=== PATIENT | male | born 1960 | race Caucasian/White ===

== ENCOUNTER 2017-02-06 16:15 | Inpatient (IN) | payer BC ==
--- NOTE | ~2017-02-06 | OP ---
Record Of Operation [facility] [address] [place]. [address] NAME: CHRIS FOLEY : 56 STATUS : ADM IN PAT#: [id number] AGE: 57 ADM/REG DATE : 02/06/17 MR#: [id number] REPORT SERV DATE: 02/07/17 DICTATED BY: JIMI GRIMES DATE: 02/06/17 REPORT STATUS : Draft TRANSCRIBED BY: MODL DATE: 02/06/17 DATE OF PROCEDURE: 02/06/2017 PREOPERATIVE DIAGNOSIS: Right dorsal hand abscess. POSTOPERATIVE DIAGNOSIS: Right dorsal abscess with nidus coming from index finger CMC dorsal region with erosion of bone at both sites, especially the index finger metacarpal base. PROCEDURES: 1. Cultures, right dorsal hand abscess. 2. Irrigation and debridement of soft tissue and bone of abscess coming from index finger CMC joint. 3. Vac-Pac placement. SURGEON: Jimi Grimes M.D. ANESTHESIA: General. SPECIMEN: Cultures taken as well as curretting of index finger metacarpal base and trapezium bone to check for osteomyelitis. ESTIMATED BLOOD LOSS: 20 mL. IV FLUIDS: 500 mL. COMPLICATIONS: None. DISPOSITION: The patient tolerated the procedure well and was brought to the recovery room in stable condition. PROCEDURE NOTE: The patient was brought to the operating room and placed in supine position after general anesthesia was administered. A pneumatic tourniquet was placed around the right proximal arm, the right upper extremity was exsanguinated with an Esmarch. The dressing was taken down and the puncture wound was inspected from an earlier aspiration. The right upper extremity distal to the tourniquet was prepped and draped in the usual sterile manner. After a surgical timeout was performed and all were in agreement, a 15- blade scalpel was used to make a 5- to 7-cm longitudinal incision on the radial aspect of the index finger metacarpal bone down across starting some 3 cm distal to the CMC joint area and brought across the dorsal wrist crease for 1 to 2 cm. Blunt dissection was carried out, scar tissue was identified, and this was removed with rongeur. Pus was collected from the wound, and at this time, the wound was then irrigated. There was a small hole noted at the CMC joint of the index finger. A rongeur was used to remove a wafer of bone which unroofed a cavity at the former CMC joint. There was bone missing from the base of the index finger CMC joint as well as bone missing from the trapezium bone. This was the site/nidus of infection and cultures were taken from here as well. A curette was then used to curette the bone from the index finger metacarpal bone and the trapezium bone/trapezoid bone, and this Record Of Operation [address] [place]. [address] NAME: CHRIS FOLEY : 56 STATUS : ADM IN [facility]#: [id number] AGE: 57 ADM/REG DATE : 02/06/17 MR#: [id number] REPORT SERV DATE: 02/07/17 DICTATED BY: JIMI GRIMES DATE: 02/06/17 REPORT STATUS : Draft TRANSCRIBED BY: JAY DATE: 02/06/17 was sent to Pathology and Microbiology. The wound was then irrigated with copious amounts of normal saline via pulse lavage. The tourniquet was released to make sure that there was no extensive bleeding, and after no extensive bleeding was appreciated, the Esmarch was used again to exsanguinate the extremity and tourniquet was inflated. The wound was irrigated again and the Vac-Pac sponge was placed into the cavity caused by the infection. The wound was then partially closed overlying the sponge using Prolene suture and an occlusive dressing was applied. A hole was cut in the occlusive dressing to allow a suction connector to be placed onto the sponge and connected to the BiPAP machine. A sterile dressing was applied and a volar splint was applied. The patient was then taken out of general anesthesia and was ready to be brought to recovery room in stable condition. CHERRI/JAY Jimi Grimes M.D. / [id number] CC: Jimi Grimes M.D.
--- NOTE | ~2017-02-06 | DS ---
Discharge Summary [facility] [address] [place]. [address] NAME: CHRIS FOLEY : 56 STATUS : DIS IN PAT#: [id number] AGE: 57 ADM/REG DATE : 02/06/17 MR#: [id number] REPORT SERV DATE: 02/22/17 DICTATED BY: JIMI GRIMES DATE: 02/21/17 REPORT STATUS : Draft TRANSCRIBED BY: JAY DATE: 02/21/17 Data Collection from hospitalization DISCHARGE DIAGNOSES: 1. Right dorsal abscess with nidus coming from index finger, carpometacarpal dorsal region with erosion of bones at both ends of the joint to include the index finger metacarpal base distally and the trapezoid bone proximally. 2. Hypertension. 3. Coronary artery disease. 4. Obstructive sleep apnea. CONSULTATION: Dr. Varun Ashby. PROCEDURES PERFORMED: 1. Cultures right dorsal hand abscess, irrigation and debridement of soft tissue and bone of abscess coming from index finger CMC joint, VAC pack placement, 02/06/2017. 2. Right index finger CMC joint repeat cultures, irrigation and debridement of soft tissue and bone to include the index finger metacarpal base and the distal trapezoid bone; vancomycin and gentamicin antibiotic placement; delayed wound closure, right ring finger metacarpal base; cultures of bone cyst; irrigation and debridement; antibiotic bead placement, 02/10/2013. PATHOLOGY: Bone biopsies, index finger and carpometacarpal joints-diffuse marrow fibrosis and acute and chronic inflammation consistent with osteomyelitis (no bacterial colonies identified). Bone right index finger-benign viable bone and cartilage without significant pathologic change. No acute or chronic osteomyelitis or osteonecrosis. Bone right index finger metacarpal-benign bone reparative change with granulation tissue with focal neutrophilic infiltrates suggestive of acute osteomyelitis. DISCHARGE MEDICATIONS: Aspirin 81 mg at bedtime, Dilaudid 2 mg every four hours as needed, Prinivil 5 mg at bedtime, Toprol-XL at bedtime as instructed, Zocor 40 mg at bedtime. CONDITION AT DISCHARGE: Stable. DISPOSITION: The patient was discharged home to be followed by home health care on a regular diet with activities as instructed. He would follow up with az, 02/20/2017. He would follow up with Dr. Varun Ashby as instructed. HOSPITAL COURSE: This is a 57-year-old man, who had had a right dorsal hand "knot" for the past four days prior to admission. Right hand had a localized swelling about the dorsal radial carpal/CMC region with warmth and redness. He did have pain when trying to achieve full flexion and extension. There were no open areas, but the dorsal hand did have some old scars present about the carpal and metacarpal area. Treatment options were discussed and it was elected to proceed with surgical intervention. He was admitted to the hospital at this time for further evaluation and treatment. Upon admission, he was taken to the operating room, where he underwent the above-mentioned procedure. He tolerated this well and there were no complications. On postop day #1, he Discharge Summary [place] [id number] [facility] [place]. [address] NAME: CHRIS FOLEY : 56 STATUS : DIS IN PAT#: [id number] AGE: 57 ADM/REG DATE : 02/06/17 MR#: [id number] REPORT SERV DATE: 02/22/17 DICTATED BY: JIMI GRIMES DATE: 02/21/17 REPORT STATUS : Draft TRANSCRIBED BY: JAY DATE: 02/21/[address] Varun Ashby for evaluation and treatment of hand infection. He had suffered trauma to his right hand in an accident in 1999, which had included a tendon rupture in his dorsal hand requiring extensive reparative surgery. He had had intermittent swelling on several occasions after that and developed an infection in 2010 with cultures growing methicillin-resistant Staph aureus. Since then, he said that it tended to swell when he does repetitive motion and that had occurred in recent weeks, but grew worse despite the usual maneuvers that had been tried in the past, like oral antibiotics and steroids. He had undergone surgical debridement. One culture was growing what appeared to be some Staph aureus. He was on vancomycin and Unasyn. He had not been on antibiotics prior to coming in. White blood cell count at the time of presentation was 13.1, creatinine was 1.1. This appeared to likely be Staph and there may be osteomyelitis. We would follow up the cultures and adjust antibiotics as indicated. For now, he recommended continuing just vancomycin alone and stop the Unasyn. The VAC pack remained in place. On the , he had occasional pain. Cultures had revealed Staph aureus. Plans were being made to proceed with further surgical intervention. He had no new symptoms. He remained afebrile. Cultures of fluid and bone had all revealed MRSA. The Dilaudid dose was increased and this helped manage his pain. IV vancomycin continued as well as lisinopril, Toprol, and simvastatin. On 02/10/2017, he was taken back to the operating room, where he underwent the above- mentioned procedure. He tolerated this well and there were no complications. The following day, he had no new symptoms. He remained afebrile. His lungs were clear. Discharge planning was performed. Vancomycin was continued. We encouraged him to mobilize with Physical Therapy. A PICC line was inserted. On 02/12/2017, he continued to do well. Discharge instructions were given. Due to his improved and stable condition, he was discharged home to be followed by home health care with the above-stated instructions. Information collected by: Patricia Stanford I submit the above information as my discharge summary. TG/MODL Jimi Grimes M.D. / [id number] CC: Jimi Grimes M.D. Gianluca Cronin M.D.
--- NOTE | ~2017-02-06 | CN ---
Consultation Report [facility] [address] [place]. [address] NAME: CHRIS FOLEY : 56 STATUS : ADM IN [facility]#: [id number] AGE: 57 ADM/REG DATE : 02/06/17 MR#: [id number] REPORT SERV DATE: 02/07/17 DICTATED BY: JEN HARDY DATE: 02/07/17 REPORT STATUS : Draft TRANSCRIBED BY: JAY DATE: 02/07/17 INFECTIOUS DISEASE CONSULT DATE OF CONSULTATION: REASON FOR REFERRAL: Evaluation and treatment of hand infection. HISTORY OF PRESENT ILLNESS: The patient is a 57-year-old male. He has a history of coronary artery disease, which he says he has had stents done in the past. Otherwise, no chronic problems or chronic medications. He suffered trauma to his right hand in an accident in 1999, which included a tendon rupture in his dorsal hand, requiring extensive reparative surgery. He had intermittent swelling in it on several occasions after that and developed an infection in 2010 with cultures here growing methicillin-resistant Staph aureus. Since then, he says it has tended to swell when he does repetitive motion and that occurred in recent weeks, but grew worse despite the usual maneuvers that have been tried in the past like oral antibiotics and steroids. He has had no fevers, chills, or other systemic symptoms. He has had no infections elsewhere in his body that might have spread there, and there has been no recent trauma or unusual environmental exposures to the hand. He was seen by Dr. Mccann, admitted, and underwent a surgical debridement yesterday with debridement of an abscess coming from the index fingers, CMC joint, and mention of the possibility of osteomyelitis. Cultures thus far on two cultures are negative, one is growing what appears to be some Staph aureus. He is on vancomycin and Unasyn. He was on no antibiotics prior to coming in. PAST MEDICAL HISTORY: Otherwise unremarkable. MEDICATIONS: As mentioned above. ALLERGIES: HE HAS NO KNOWN ANTIMICROBIAL ALLERGIES. 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 Does a lot of photography and gardening as hobbies. He is . His is with him in the room. He does smoke 4-5 cigarettes a day. No history of alcohol or substance abuse. FAMILY HISTORY: Noncontributory. PHYSICAL EXAMINATION: GENERAL: A nontoxic adult male, in no acute distress. Alert and oriented x3. VITAL SIGNS: Temperature since arrival has been normal at 98.5 at present with a pulse of 72, respirations 22, blood pressure 112/66. Weight 81 kg. HEENT: Sclerae are clear. No oral lesions. NECK: Supple. LUNGS: Clear. HEART: Regular rate and rhythm without murmur. Consultation Report [place] [address] [place]. [address] NAME: CHRIS FOLEY : 56 STATUS : ADM IN PAT#: [id number] AGE: 57 ADM/REG DATE : 02/06/17 MR#: [id number] REPORT SERV DATE: 02/07/17 DICTATED BY: JEN HARDY DATE: 02/07/17 REPORT STATUS : Draft TRANSCRIBED BY: JAY DATE: 02/07/17 ABDOMEN: Soft, nontender. Positive bowel sounds. EXTREMITIES: The right hand was covered by a bulky dressing on the forearm down to the tips of the fingers with normal-appearing tissue above it. LABORATORY DATA: White count at presentation 13.1 with a hematocrit of 46.6, platelets 295. Unremarkable differential. BUN and creatinine are 18 and 1.1. IMPRESSION: Infection at the site of old trauma and had normal anatomy on the dorsal right hand, it appears to likely be staph, and there may be osteomyelitis as per Dr. Mccann's assessment. Material that was submitted to Pathology to evaluate for this is still pending. RECOMMENDATIONS: 1. We will follow up the cultures, adjust antibiotics as indicated. 2. For now, continue just vancomycin alone and stop the Unasyn. 3. Finally, I will follow the patient with you. I appreciate very much your consulting on this patient. DENISSE/JAY Jen Hardy M.D. / [id number] CC: Gianluca Hatch M.D.
--- NOTE | ~2017-02-06 | OP ---
Record Of Operation [place] [address] [facility] [place]. 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 POSTOPERATIVE DIAGNOSES: 1. 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 2. Right dorsal ring finger bone cyst-benign. PROCEDURES: 1. Right index finger. a. Repeat cultures. b. Irrigation and debridement of soft tissue and bone to include the index finger metacarpal base and the distal trapezoid bone. c. Vancomycin and gentamicin antibiotic placement. d. Delayed wound closure. 2. Right ring finger:. a. Cultures of bone cyst. b. Irrigation and debridement. c. Antibiotic bead placement. SURGEON: Jimi Grimes M.D. CERTIFIED MASTER SAFECRACKER: Sruthi. ANESTHESIA: General. ESTIMATED BLOOD LOSS: Less than 2 mL. COMPLICATIONS: None. DISPOSITION: The patient tolerated the procedure well and was brought to the recovery room in a stable condition. PROCEDURE NOTE: The patient was brought to the operating room and was placed in the supine position. After general anesthesia was administered, a pneumatic tourniquet was placed around the right proximal arm, and the right upper extremity distal to the tourniquet was prepped and draped in usual sterile manner. A surgical timeout was performed and all were in agreement. The VAC pack sponge was removed. The wound was inspected. Cultures were taken and samples from the index finger metacarpal and distal trapezoid bone were taken and also sent to microbiology as well as pathology. The wound was then irrigated with copious amounts of normal saline including the surrounding soft tissues. The wound was later packed Record Of Operation [place] [address] [facility] [place]. [address] NAME: CHRIS FOLEY : 56 STATUS : ADM IN PAT#: [id number] AGE: 57 ADM/REG DATE : 02/06/17 MR#: [id number] REPORT SERV DATE: 02/10/17 DICTATED BY: JIMI GRIMES DATE: 02/10/17 REPORT STATUS : Draft TRANSCRIBED BY: JAY DATE: 02/10/17 with antibiotic beads comprising of 1 g of vancomycin and 240 mg of gentamicin. Preoperative x-rays revealed a small cystic change in the ring finger metacarpal base and based on the patient's history, exploration of the cyst was done to rule out another nidus of infection. Under fluoroscopic guidance, a 15 blade scalpel was used to make a longitudinal incision overlying the cyst and blunt dissection was carried out. A curette was then used to unroof the cyst and the cyst appeared benign with no evidence of infection. Cultures were taken as well as the bone samples were taken and also sent to pathology and microbiology. The wound was irrigated again and later packed with antibiotic beads, similar to that of the index finger. All wounds were then closed with deep and running Monocryl suture. Steri-Strips, sterile dressing, and a volar splint was applied. Tourniquet was released. The patient was taken out of general anesthesia and brought to recovery room in stable condition. CHERRI/JAY Jimi Grimes M.D. / [id number] CC: Gianluca Hatch M.D.
[2017-02-06] MEDS ORDERED: TOPXL25 (17:10)
[2017-02-06] MEDS ORDERED: PRIN5 PO (17:10)
[2017-02-06] MEDS ORDERED: ZOCOR40 PO (17:11)
[2017-02-06] MEDS ORDERED: ASAB PO (17:12)
[2017-02-06 17:36] LABS: HEMATOCRIT 46.6 % (40.0-51.0); HEMOGLOBIN 16.5 g/dL (13.6-17.8)
[2017-02-06 17:37] LABS: BUN (BLOOD UREA NITROGEN) 18 MG/DL (6-23); CALCIUM, SERUM 8.9 MG/DL (8.5-10.4); CHLORIDE, SERUM 102 MMOL/L (96-112); CO2 (CARBON DIOXIDE) 27 MMOL/L (24-34); GFR AFRICAN AMERICAN 85 ML/MIN (>=60); GFR NON AFRICAN AMERICAN 73 ML/MIN (>=60); GLUCOSE, SERUM 97 MG/DL (60-99); POTASSIUM, SERUM 4.4 MMOL/L (3.5-5.3); SODIUM, SERUM 140 MMOL/L (135-148)
[2017-02-06 19:39] LABS: BASOPHILS 0.5 %; BASOPHILS ABSOLUTE 0.06 10/3/uL (0.0-0.16); EOSINOPHILS 1.9 %; EOSINOPHILS ABSOLUTE 0.25 10/3/uL (0.0-0.53); IMMATURE GRANULOCYTES 0.8 %; LYMPHOCYTES 30.1 %; LYMPHOCYTES ABSOLUTE 3.94 10/3/uL (0.67-4.30); MEAN CORPUS HGB CONC 35.7 g/dL (32.0-36.0); MEAN CORPUSCULAR HEMOGLOB 32.1 pg (26.0-34.0); MEAN CORPUSCULAR VOLUME 89.9 fL (80-100); MEAN PLATELET VOLUME 11.1 fL (9.2-13.0); MONOCYTES 8.2 %; MONOCYTES ABSOLUTE 1.07 10/3/uL (0.21-1.20); NEUTROPHILS 58.5 %; NEUTROPHILS ABSOLUTE 7.66 10/3/uL (2.02-8.40); PLATELET COUNT 295 10/3/uL (150-400); RBC DISTRIBUTION WIDTH 13.1 % (12.0-16.0); RED CELL COUNT 5.14 10/6/uL (4.7-6.1); WHITE BLOOD CELLS 13.1 10/3/uL (4.5-10.5)
[2017-02-06 19:43] LABS: MANUAL DIFF NO %
[2017-02-10 04:50] LABS: HEMATOCRIT 42.7 % (40.0-51.0); HEMOGLOBIN 14.9 g/dL (13.6-17.8); MEAN CORPUS HGB CONC 34.9 g/dL (32.0-36.0); MEAN CORPUSCULAR HEMOGLOB 31.4 pg (26.0-34.0); MEAN CORPUSCULAR VOLUME 89.9 fL (80-100); MEAN PLATELET VOLUME 10.2 fL (9.2-13.0); PLATELET COUNT 224 10/3/uL (150-400); RBC DISTRIBUTION WIDTH 12.9 % (12.0-16.0); RED CELL COUNT 4.75 10/6/uL (4.7-6.1); WHITE BLOOD CELLS 10.3 10/3/uL (4.5-10.5)
[2017-02-10 04:53] LABS: MANUAL DIFF YES %
[2017-02-10 05:05] LABS: BUN (BLOOD UREA NITROGEN) 13 MG/DL (6-23); CHLORIDE, SERUM 107 MMOL/L (96-112); CO2 (CARBON DIOXIDE) 26 MMOL/L (24-34); CREATININE 0.89 MG/DL (0.70-1.30); GFR AFRICAN AMERICAN 108 ML/MIN (>=60); GFR NON AFRICAN AMERICAN 94 ML/MIN (>=60); GLUCOSE, SERUM 103 MG/DL (60-99); POTASSIUM, SERUM 4.5 MMOL/L (3.5-5.3); SODIUM, SERUM 141 MMOL/L (135-148)
[2017-02-10 05:08] LABS: CALCIUM, SERUM 8.7 MG/DL (8.5-10.4)
[2017-02-10 06:02] LABS: ATYPICAL LYMPH FEW (3-5%) (0-5%); EOSINOPHILS 4 %; EOSINOPHILS ABSOLUTE (CALC) 0.41 10/3/uL (0.0-0.53); LYMPHOCYTES 35 %; LYMPHOCYTES ABSOLUTE (CALC) 3.61 10/3/uL (0.67-4.30); MONOCYTES 9 %; MONOCYTES ABSOLUTE (CALC) 0.93 10/3/uL (0.21-1.20); NEUTROPHILS ABSOLUTE (CALC) 5.36 10/3/uL (2.02-8.40); PLATELET ESTIMATE ADQ (ADEQUATE); RBC MORPHOLOGY NORM (NORMAL); SEGMENTED NEUTROPHIL (0) 52 %; TOTAL NUCLEATED CELLS 100
[2017-02-12] MEDS ORDERED: DIL2TAB PO (10:46)
== END 2017-02-12 14:12 | disposition home health service (06) | DRG 517 ==
LOC: SDC/OF 16:15 → PACU 20:55 → 3SO 22:52
PROVIDERS: Orthopaedic Surgery Hand Surgery
PROC: 0PBT0ZZ Excision of Right Finger Phalanx, Open Approach (ICD-10-PCS; principal; 2017-02-06 18:15)
PROC: 0PBT0ZZ Excision of Right Finger Phalanx, Open Approach (ICD-10-PCS; 2017-02-10)
PROC: 02HV33Z Insertion of Infusion Device into Superior Vena Cava, Percutaneous Approach (ICD-10-PCS; 2017-02-11)
PROC: 4A02X4A Measurement of Cardiac Electrical Activity, Guidance, External Approach (ICD-10-PCS; 2017-02-11)
DX: M86.141 Other acute osteomyelitis, right hand (principal); I10 Essential (primary) hypertension; E78.5 Hyperlipidemia, unspecified; E05.90 Thyrotoxicosis, unspecified without thyrotoxic crisis or storm; I25.10 Atherosclerotic heart disease of native coronary artery without angina pectoris; Z95.5 Presence of coronary angioplasty implant and graft
CPT/HCPCS: 36569; 80048; 80202; 85025; 87015; 87070; 87075; 87102; 87116; 87205; 88304; 88307; 88311; 93005; A9270-GY; C1713; C1751; J0295; J1580; J1885; J2175; J2250; J2270; J2274; J2405; J2795; J3010; J3370